=== PATIENT | female | born 1995 | race Caucasian/White ===

== ENCOUNTER 2020-07-01 11:42 | Emergency (ER) | payer OTHER, SELFPAY ==
[2020-07-01 12:17] VITALS: BP 148/93; PULSE 91; RESP 17; TEMP 36.7; O2SAT 99; BMI 30.2
--- NOTE | 2020-07-01 12:27 | ED.GENADULT ---
HPI - General Adult General Chief complaint: General Medical Stated complaint: Needs ring removed Time Seen by Provider: 07/01/20 12:27 Source: patient Mode of arrival: ambulatory History of Present Illness HPI narrative: 24-year-old female with no significant past medical history presented to ED complaining of ring stuck on right middle finger since last night. Admits put the ring on last night and has been unable to get off at home. Reports finger-nose swollen red. Denies numbness, tingling, weakness Onset (ago): hour(s) Related Data Allergies Allergy/AdvReac Type Severity Reaction Status Date / Time amoxicillin [AMOXICILLIN] Allergy Unknown UNKNOWN Verified 07/01/20 12:19 Review of Systems Review of Systems: Constitutional: No Weight loss, No Fever, No Chills Musculoskeletal: No joint pain, No Myalgias, + Joint Swelling Skin: No Skin Lesions, No rash Neuro: No Weakness, No Numbness, No Paresthesias PMFSH Past Medical History Attestation statement: The following information was validated with the patient. Medical History (Updated 07/01/20 @ 12:31 by JUSTIN Miles) No known health problems Social History Social History Advance Directives: No Advance Directives Information Provided: Yes Physical Exam Vital Signs: Vital Signs: Last Vital Signs Temp 98.1 F 07/01/20 12:17 Pulse 91 07/01/20 12:17 Resp 17 07/01/20 12:17 BP 148/93 H 07/01/20 12:17 Pulse Ox 99 07/01/20 12:17 Body Mass Index 30.2 Const: General: cooperative and healthy appearing Orientation/consciousness: patient oriented x3 Limitations: no limitations HENMT: Head: Yes normal to inspection Ears: hearing grossly normal bilaterally General nose exam: Normal external nose present Face and sinus: Yes normal facial exam Eyes: General: appearance normal, both eyes and all related structures EOM: EOMs intact bilaterally Neck: Neck: Yes normal visual inspection : General: Yes no CVA tenderness Back/Spine/Pelvis: Back: no CVA tenderness Skin: Rashes: no rashes Wounds: no wounds Neuro: General: patient oriented x3 Gait exam (Neuro): Normal gait present Extrem: Other: Ring stuck on right hand middle finger, with notable finger swelling/erythema around ring FROM/NV intact to fingers/hand General: Yes normal to inspection Procedures Procedure Narrative Procedure Narrative: Ring cutter used to remove ring from right hand middle finger Discharge Plan Discharge Clinical Impression: Foreign body finger Patient Disposition: Home, Self-Care Instructions: Swollen Joint (ED) Additional Instructions: It is normal for your finger to be red and inflamed, it will go down of the ring has been removed You can massage or finger to help with the blood supply/inflammation Take Tylenol Motrin at home for pain Do not apply any rings to your finger for until swelling completely resolved Referrals: Jay Dominguez MD [Primary Care Provider] - 1 week (As needed)
== END 2020-07-01 12:41 | disposition home or self-care (01) ==
PROVIDERS: Emergency Provider Emergency Medicine; PCP Internal Medicine
DX: S60.452A Superficial foreign body of right middle finger, initial encounter (principal); M79.644 Pain in right finger(s); X58.XXXA Exposure to other specified factors, initial encounter; Y93.9 Activity, unspecified; Y92.9 Unspecified place or not applicable; Y99.9 Unspecified external cause status
CPT/HCPCS: 99282